=== PATIENT | female | born 1980 | race Caucasian/White ===

== ENCOUNTER 2017-02-09 20:26 | Emergency (ER) | payer MEDICAID ==
[~2017-02-09] VITALS: Ht 160 cm; Wt 66.0 kg
[2017-02-09 21:12] VITALS: Ht 160 cm; Wt 66.0 kg
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
[2017-02-09] MEDS ORDERED: IBUP-1542 PO (23:20)
[2017-02-09 23:32] VITALS: BP 125/82; PULSE 87; RESP 16; TEMP 98.2
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
== END 2017-02-09 23:30 | disposition home or self-care (01) ==
LOC: FTE 20:26
DX: M54.5 Low back pain (principal)
CPT/HCPCS: 72020; Z7502